=== PATIENT | female | born 1960 | race Hispanic/Latino ===

== ENCOUNTER 2022-10-15 06:01 | Emergency (ER) | payer MEDICARE ==
[~2022-10-15] VITALS: Ht 154.9 cm; Wt 47.6 kg
[2022-10-15] MEDS ORDERED: KETOROLAC TROMETHAMINE 30 MG/ML VIAL IM ONE (06:30)
[2022-10-15] MEDS ORDERED: KETOROLAC TROMETHAMINE 30 MG/ML VIAL ONE (06:37)
== END 2022-10-15 06:36 | disposition home or self-care (01) ==
LOC: ER 06:11
DX: R07.89 Other chest pain (principal); Z87.81 Personal history of (healed) traumatic fracture; E11.9 Type 2 diabetes mellitus without complications; Z85.3 Personal history of malignant neoplasm of breast
CPT/HCPCS: 99282; J1885